=== PATIENT | male | born 1995 | race Caucasian/White ===

== ENCOUNTER 2017-09-04 19:58 | Emergency (ER) | payer OTHER ==
[~2017-09-04] VITALS: Ht 182.9 cm; Wt 93.4 kg
[2017-09-04 20:03] VITALS: Ht 182.9 cm; Wt 93.4 kg
[2017-09-04 21:50] VITALS: BP 131/78
== END 2017-09-04 21:50 | disposition home or self-care (01) ==
LOC: ED 19:58
DX: S20.211A Contusion of right front wall of thorax, initial encounter (principal); W18.30XA Fall on same level, unspecified, initial encounter; Y93.89 Activity, other specified; Y92.89 Other specified places as the place of occurrence of the external cause; Y99.8 Other external cause status
CPT/HCPCS: J1885